=== PATIENT | female | born 1975 | race Caucasian/White ===

== ENCOUNTER 2023-03-09 06:29 | Outpatient (OUT) | payer BC, SELFPAY ==
--- NOTE | 2023-03-09 06:45 | MR_ITS ---
The [address] [address] Patient Name: KRISTEN RAMOS MRN: [id number] date: 1975 Sex: F Assigned Patient Location: MRI Current Patient Location: MRI Accession/Order Number: [id number] Exam Date: 03/09/2023 06:50 Report Date: 03/09/2023 08:02 At the request of: JEANINE JACOBO Procedure: MR head/brain wo/w con EXAMINATION: MR head/brain wo/w con HISTORY: Chronic Migraine G43.709, Dizziness R42 COMPARISON: No relevant comparison available. TECHNIQUE: A variety of imaging planes and parameters were utilized for visualization of suspected pathology. Images were performed without and with Dotarem contrast. FINDINGS: CEREBRUM: Small areas of subtly increased T2 signal within the deep white matter cephalad to the anterior horn and the posterior horn of the left lateral ventricles, nonspecific. No mass, abnormal signal on other sequences, or increased enhancement. No hemorrhage, acute infarction, or atrophy. CEREBELLUM: No edema, hemorrhage, mass, acute infarction, or atrophy. BRAINSTEM: No edema, hemorrhage, mass, acute infarction, or inappropriate atrophy. CSF SPACES: Ventricles, cisterns, and sulci are appropriate for age. No hydrocephalus, subarachnoid hemorrhage, or mass. SKULL: No mass or other significant visible lesion. SINUSES: Limited views demonstrate no significant mucosal thickening or fluid. ORBITS: Limited views are unremarkable. OTHER: No abnormal meningeal or parenchymal enhancement. MR/MR head/brain wo/w con IMPRESSION: 1. No abnormal or suspicious findings to account for patient's symptoms. 2. Subtle, nonspecific, and questionable areas of signal change within the left frontal and parietal lobe of uncertain etiology and clinical significance. If symptoms persist consider follow-up MRI in 3-6 months to document stability versus change. Electronically authenticated by: JOSAFAT OCONNOR Date: 03/09/2023 08:02
== END 2023-03-09 06:30 | disposition home or self-care (01) ==
LOC: MRI 06:35
PROVIDERS: PCP Family Medicine; Visit Provider Psychiatry & Neurology Neurology
DX: G43.709 Chronic migraine without aura, not intractable, without status migrainosus (principal); R42 Dizziness and giddiness
CPT/HCPCS: 70553; A9575

== ENCOUNTER 2024-06-09 11:42 | Outpatient (OUT) | payer BC, SELFPAY ==
[2024-06-09 12:29] LABS: Basophils Percent Auto 0.8 % (0.2-2.0); Eosinophils Percent Auto 0.6 % (0.9-7.0); Hematocrit 31.5 % (36.0-48.0); Hemoglobin 9.4 g/dL (12.0-16.0); Immature Granulocytes Abs Auto 0.01 10^3/uL (0.00-0.03); Immature Granulocytes Pct Auto 0.2 % (0.0-0.5); Lymphocytes Absolute Auto 1.1 10^3/uL (1.2-3.8); Lymphocytes Percent Auto 21.4 % (20.5-60.0); Mean Corpuscular HGB Conc 29.8 g/dL (29.9-35.2); Mean Corpuscular Hemoglobin 23.2 pg (26.7-34.0); Mean Corpuscular Volume 77.6 fL (81.0-99.0); Mean Platelet Volume 9.9 fL (9.5-13.5); Monocytes Absolute Auto 0.4 10^3/uL (0.3-0.8); Monocytes Percent Auto 7.8 % (1.7-12.0); Neutrophils Absolute Auto 3.6 10^3/uL (1.4-6.5); Neutrophils Percent Auto 69.2 % (43.0-75.0); Platelet Count 242 10^3/uL (150-450); Red Blood Count 4.06 10^6/uL (4.20-5.40); Red Cell Distribution Width 15.3 % (11.0-15.0); White Blood Count 5.1 10^3/uL (4.0-11.0)
[2024-06-09 12:38] LABS: Estimated Average Glucose 114 mg/dL; Glycohemoglobin A1C 5.6 % (4.5-6.2)
[2024-06-09 12:49] LABS: Alanine Aminotransferase 13 U/L (14-59); Albumin Globulin Ratio 1.3; Alkaline Phosphatase 79 U/L (46-116); Anion Gap 10.3; Aspartate Amino Transferase 10 U/L (15-37); BUN Creatinine Ratio 16.9; Bilirubin Total 0.5 mg/dL (0.2-1.0); Calcium 8.7 mg/dL (8.5-10.1); Carbon Dioxide 26.3 mmol/L (21.0-32.0); Chloride 105 mmol/L (98-107); Estimated GFR (African America >60 (>=60 mL/min/1.73m^2); Estimated GFR (Non-African Ame >60 (>=60 mL/min/1.73m^2); Globulin 3.2 g/dL; Glucose 93 mg/dL (74-106); Potassium 3.6 mmol/L (3.5-5.1); Sodium 138 mmol/L (136-145); TSH W/ REFLEX FT4 1.385 uIU/mL (0.358-3.740); Total Protein 7.2 g/dL (6.4-8.2)
== END 2024-06-09 11:43 | disposition home or self-care (01) ==
LOC: LAB 11:45
PROVIDERS: PCP Nurse Practitioner Family; Visit Provider Nurse Practitioner Family
DX: R35.0 Frequency of micturition (principal)
CPT/HCPCS: 36415; 80053; 83036; 84443; 85025